=== PATIENT | male | born 1980 | race African-American/Black ===

== ENCOUNTER 2016-05-31 13:16 | Emergency (ER) | payer SELFPAY ==
[~2016-05-31] VITALS: Ht 175.3 cm; Wt 102.2 kg
[2016-05-31 13:17] VITALS: BP 140/86; PULSE 98; RESP 20; TEMP 98; O2SAT 94
[2016-05-31] MEDS ORDERED: LIDOCAINE 1%/EPINEPHrine 1:100,000 SOLN 20 ML VIAL INFIL ONE (14:15)
[2016-05-31] MEDS ORDERED: CEPH-460 PO (14:16)
[2016-05-31] MEDS ORDERED: BACT800T5 PO (14:16)
--- NOTE | 2016-05-31 14:16 | PD ---
HPI Chief Complaint: Skin Problem Time Seen by Provider: 14:11 Travel History International Travel<30 days: No Contact w/Intl Traveler<30days: No Traveled to known affect area: No History of Present Illness HPI 36-year-old male presents to the emergency department for evaluation of tender painful lump to groin for 2 days. Patient states that he has had similar bumps in the past, states that he gets ingrown hairs frequently. Denies any discharge or drainage from the site. Denies any fever, chills, nausea, vomiting , penile discharge, scrotal pain. No aggravating or alleviating factors. Symptoms are mild in severity. No other complaints. PFSH Past Medical History Medical History: Denies Significant Hx Social History Alcohol Use: No Tobacco Use: No Substance Use: No Allergies-Medications (Allergen,Severity, Reaction): Coded Allergies: No Known Allergies (Unverified , 05/31/16) Reported Meds & Prescriptions Reported Meds & Active Scripts Active Bactrim DS (Sulfamethoxazole-Trimethoprim) 800-160 Mg Tab 1 Tab PO BID 10 Days Keflex (Cephalexin) 500 Mg Cap 500 Mg PO Q6H 10 Days Review of Systems Except as stated in HPI: all other systems reviewed are Neg Physical Exam Narrative GENERAL: Well-nourished and well-developed pleasant patient in no acute distress who is nontoxic appearing. SKIN: Warm and dry. There is a 1 cm raised fluctuant mass to mons pubis. No discharge or drainage, no surrounding erythema or warmth. HEAD: Normocephalic and atraumatic. EYES: No injection, drainage, or hyphema noted. PERRLA. EOMI. ENT: No nasal drainage noted. Oropharynx is clear. NECK: Supple and the trachea is midline. CARDIOVASCULAR: Regular rate and rhythm. RESPIRATORY: Breath sounds are equal bilaterally with no accessory muscle use, wheezing, rhonchi, or crackles. NEUROLOGICAL: Awake, alert, and oriented. Normal speech and gait. Cranial nerves are grossly intact. Data Data Last Documented VS Vital Signs Date Time Temp Pulse Resp B/P Pulse Ox O2 Delivery O2 Flow Rate FiO2 05/31/16 13:17 98.0 98 20 140/86 94 Room Air Orders Wound Culture And Gram Stain (05/31/16 14:10) Lidocai-Epi 1%-1:100,000 Inj (Xylocaine- (05/31/16 14:15) [facility] Medical Decision Making Medical Screen Exam Complete: Yes Emergency Medical Condition: Yes Differential Diagnosis Abscess versus folliculitis versus cyst Narrative Course 36-year-old male presents to the emergency department for evaluation of tender painful lump to groin for 2 days. Patient is afebrile, vital signs are stable. This is a small abscess, I&D is performed, see procedure narrative. Patient is placed on antibiotics. Discussed supportive care and when to return to the emergency department. Patient verbalizes understanding and agreement with treatment plan. Procedures Procedure Narrative After the risks and benefits were discussed the following procedure was performed: INCISION AND DRAINAGE OF ABSCESS: The area was prepped and was sterilely draped. A subcutaneous wheal of 1 % Xylocaine with epinephrine with a total number 2 mL was used to anesthetize the area. The area was properly anesthetized. A number 11 scalpel was used to make a 0.5 -cm incision across the area of the abscess, purulence was expelled. Cultures were obtained. The abscess was drained an irrigated with normal saline. Sterile dressing applied. Diagnosis Primary Impression: Abscess Referrals: Primary Care Physician Patient Instructions: Abscess (ED), General Instructions Additional Instructions: Apply warm compresses. Take medications as prescribed with food and a full glass of water. Follow-up with your Primary Care Physician. Return to the ED for any acute worsening of symptoms. Med/Other Pt SpecificInfo: Prescription(s) given Scripts Sulfamethoxazole-Trimethoprim (Bactrim DS)800-160 Mg Tab1 Tab PO BID 10 Days Ref 0 Prov:Chelita Valentin MD 05/31/16 Cephalexin (Keflex)500 Mg Viv617 Mg PO Q6H 10 Days Ref 0 Prov:Chelita Valentin MD 05/31/16 Disposition: 01 DISCHARGE HOME Condition: Stable Rose Holguin May 31, 2016 14:15
== END 2016-05-31 14:53 | disposition home or self-care (01) ==
LOC: NEPB 13:16
DX: L02.214 Cutaneous abscess of groin (principal)
CPT/HCPCS: 10060; 87070; 87205